=== PATIENT | female | born 1975 | race Caucasian/White ===

== ENCOUNTER 2017-07-24 08:03 | Inpatient (IN) | payer OTHER ==
[2017-07-24] MEDS ORDERED: DILTIAZEM HCL 125 MG in DEXTROSE 5 % IN WATER 100 ML IV PRN ×2 (08:14)
[2017-07-24] MEDS ORDERED: DILTIAZEM HCL 5 MG/ML VIAL IV ONE ×3 (08:14→12:52)
[2017-07-24] MEDS ORDERED: ASPIRIN 81 MG TAB.CHEW PO ONE (08:29)
[2017-07-24] MEDS ORDERED: ASPIRIN 81 MG TAB.CHEW ONE (08:30)
--- NOTE | 2017-07-24 08:32 | ERNOTE ---
Chest Pain/Cardiac HPI Chief Complaint: Palpitations Time Seen by Provider: 07/24/17 08:05 Source: patient, family Exam Limitations: no limitations Immunizations: IMMUNIZATION HX Immunizations Up to Date Yes History of Influenza Vaccine Yes Hx Pneumococcal Vaccination No Allergies/Adverse Reactions: Allergies clarithromycin [From Biaxin] Allergy (Verified 07/24/17 08:15) Hives Penicillins Allergy (Verified 07/24/17 08:15) Hives Home Medications: HOME MEDICATIONS Atomoxetine HCl [Strattera] 30 mg PO DAILY 07/24/17 [Last Taken Unknown] Levocetirizine Dihydrochloride [Xyzal] 5 mg PO DAILY 07/24/17 [Last Taken Unknown] Levothyroxine Sodium [Synthroid] 25 mcg PO DAILY 07/24/17 [Last Taken Unknown] Sertraline HCl [Zoloft] 200 mg PO DAILY 07/24/17 [Last Taken Unknown] clonazePAM [Klonopin] 0.25 mg PO TID PRN 07/24/17 [Last Taken Unknown] lamoTRIgine [Lamictal] 400 mg PO BID 07/24/17 [Last Taken Unknown] metFORMIN HCL [Metformin HCl ER] 1,500 mg PO HS 07/24/17 [Last Taken Unknown] Narrative: Patient will morning at approximately 6 AM and it feels sore heart was racing. She has noticed this one other time in the past of vertigo lasted for less than an hour before it stopped. This time as been ongoing for over 2 hours and she feels short of breath and was feeling little diaphoretic. He rates it as mild to moderate in severity. Timing: constant Severity/Quality: mild, moderate Location: central Chest Pain Radiation: no radiation Activities at Onset: none Modifying Factors - Improves: Present: nothing Modifying Factors - Worsens: Present: nothing Nitro Today/Relief: no nitro taken today Aspirin Treatment Today: 81 mg x 4, provided by ED Associated Symptoms: Present: shortness of breath, diaphoresis Prior Chest Pain/Cardiac Workup: Reports: other - similar symptoms a couple years ago Prior Treatment: Reports: recently seen Review of Systems - Review of Systems Constitutional: Present: See HPI EYE: Present: no symptoms reported ENT: Present: no symptoms reported Respiratory: Present: no symptoms reported Cardiology: Present: palpitations Gastrointestinal/Abdominal: Present: no symptoms reported Genitourinary: Present: no symptoms reported Musculoskeletal: Present: no symptoms reported Skin: Present: no symptoms reported Neurological: Present: no symptoms reported Endocrine: Present: no symptoms reported Hematologic/Lymphatic: Present: no symptoms reported Psych: Present: no symptoms reported - Patient's Past Medical History Patient History - Medical: Depression, Other Patient History - Cardiac/Respiratory: Atrial Fibrillation Patient History - Cancer: No Hx of Cancer Patient History - Surgical Procedures: Hysterectomy Patient History - Other: None - Social History Living Situations: home Abuse History: No History of abuse Psych History: Hx of Depression, Current tx/ever been on anti-depressants or anti-anxiety meds Smoking Status: Former smoker Have you smoked in the past 12 months: No Alcohol Use: none Drug Use: none - Immunizations Immunizations Up to Date: Yes Hx Pneumococcal Vaccination: No History of Influenza Vaccine: Yes Physical Exam - Physical Exam General Appearance: Present: wd/wn, alert, moderate distress Head Exam: Present: normal inspection Eye Exam: Normal inspection: bilateral, PERRL: bilateral Ears, Nose, Throat: Present: normal ENT inspection, H, normal pharynx Neck: Present: normal inspection, nontender Respiratory: Present: normal breath sounds, no accessory muscle use, chest nontender, lungs clear, respiratory distress - mild Cardiovascular/Chest: Present: no murmur, normal peripheral pulses, tachycardia , irregularly irregular Gastrointestinal/Abdominal: Present: normal bowel sounds, nontender, nondistended, soft, no organomegaly Rectal Exam: Present: deferred Back Exam: Present: normal inspection, normal range of motion Extremity Exam: Present: normal inspection, non-tender, no edema, normal range of motion Neurological Exam: Present: alert, oriented, normal mood/affect Skin Exam: Present: normal color, diaphoresis Lymphatic Exam: Present: no adenopathy ED Progress - Results and Orders Patient's Lab Results:: I have reviewed the patient's lab results. - Vital Signs Patient's Vital Signs:: I have reviewed the patient's vital signs. Vital Signs: Vital Signs 07/24/17 08:03 Temperature 35.1 C L Pulse Rate 143 H Respiratory 16 Rate Blood Pressure 114/81 O2 Sat by Pulse 97 Oximetry - EKG EKG: atrial fibrillation EKG read: Reviewed by me - X-Ray X-Ray #1 X-Ray: chest Interpretation: Reviewed by me - Progress/Reassessment Chief Complaint: Palpitations - Transfer of Care Expected Disposition: Admit Plan - Plan Plan: Patient will need to be admitted to the S2 for the day and an echocardiogram will need to be done. We initially attempted to control the rate with Cardizem and we were ineffective and a blood pressures falling so we changed her to amiodarone with 150 mg bolus and drip of 1 mg/m of the amiodarone. Patient admitted to the ICU and guarded/critical condition Departure Clinical Impression: Atrial fibrillation with RVR - Departure Disposition: [facility] Condition: Fair Critical Care Note - Critical Care Note Total Time (mins): 45 Comments: Patient arrived needing both IV Cardizem which failed to get adequate response and we had to switch her over to amiodarone drip with a bolus and drip of Cardizem and amiodarone both being given in the ED. Emergent cardioversion was not necessary as the blood pressure remained reasonable. Patient did receive 1 mg/kg of Lovenox subcutaneous in the ED as well. Critical Care Time - Critical Care Critical Time Spent:: Yes Total time (mins) Spent:: 45
[2017-07-24 08:35] LABS: Hematocrit 45.6 % (37.0-47.0); Hemoglobin 15.6 gm/dL (12.5-16.0); Mean Cell Volume 87.4 fl (78-100); Mean Corpuscular Hemoglobin 29.9 pg (27-31); Mean Corpuscular Hgb Conc 34.2 g/dl (32-36); Mean Platelet Volume 8.9 fl (6.0-9.5); Neutrophil # 3.8 K/mm3 (1.3-6.0); Neutrophil % 58.9 % (42-75.0); Platelet Count 342 K/mm3 (150-450); Red Blood Count 5.22 M/mm3 (4.2-5.4); Red Cell Distribution Width 12.4 % (11.5-14.0); White Blood Count 6.4 K/mm3 (4.0-10.5)
[2017-07-24 08:46] LABS: Prothrombin Time (Patient) 9.6 Seconds (9.0-11.0)
[2017-07-24 08:48] LABS: INR 0.96 INR (0.90-1.10); Partial Thrombolplastin Time 25.7 Seconds (24-32)
[2017-07-24 08:56] LABS: ALT 29 U/L (19-67); AST 23 U/L (0-48); Albumin * 3.7 gm/dl (3.4-5.0); Alkaline Phosphatase * 63 U/L (50-170); Anion Gap 17.8 mmol/L (6.8-13.8); BUN/Creatinine Ratio 10.3 (9.0-21.6); Bilirubin, Total 0.3 mg/dL (0.0-1.1); Blood Urea Nitrogen 10 mg/dL (3-23); Ca. Corrected For Albumin 8.9 mg/dL (8.4-10.2); Carbon Dioxide 23.8 mmol/L (24-32.6); Chloride 107 mmol/L (97-106); Glucose * 88 mg/dL (70-110); Magnesium 1.7 mg/dL (1.2-2.8); Potassium 3.6 mmol/L (3.4-4.6); Sodium 145 mmol/L (132-142); Total Protein 7.5 gm/dL (6.2-8.2); Troponin I Less than 0.017 ng/ml (0.00-0.10)
[2017-07-24] MEDS ORDERED: ENOXAPARIN SODIUM 100 MG/ML SYRG SC ONE ×2 (09:13→09:17)
[2017-07-24] MEDS ORDERED: ENOXAPARIN SODIUM 30 MG/0.3 ML SYRG SC ONE (09:17)
[2017-07-24] MEDS ORDERED: AMIODARONE HCL 50 MG/ML AMPUL IV STA (09:28)
[2017-07-24] MEDS ORDERED: AMIODARONE HCL 150 MG/100 ML PIGGYBACK IV ONE (09:28)
[2017-07-24] MEDS ORDERED: clonazePAM 0.5 MG TABLET ONE (09:43)
[2017-07-24] MEDS ORDERED: AMIODARONE HCL 900 MG in DEXTROSE 5 % IN WATER 500 ML IV SCH ×2 (10:00)
[2017-07-24] MEDS ORDERED: clonazePAM 0.5 MG TABLET PO ONE (10:45)
[2017-07-24] MEDS ORDERED: NORMAL SALINE 1,000 ML IV ONE ×3 (10:45→14:20)
[2017-07-24] MEDS: NORMAL SALINE 1,000 ML IV PRN ×2 (15:27→23:24)
[2017-07-24] MEDS: LEVOTHYROXINE SODIUM 25 MCG TABLET PO SCH (15:42)
[2017-07-24] MEDS: SERTRALINE HCL 100 MG TABLET PO SCH (15:43)
[2017-07-24] MEDS: DILTIAZEM HCL 125 MG in DEXTROSE 5 % IN WATER 100 ML IV PRN ×4 (16:01→23:23)
[2017-07-24] MEDS: lamoTRIgine 100 MG TABLET PO SCH (20:52)
[2017-07-24] MEDS: clonazePAM 0.5 MG TABLET PO PRN (20:53)
--- NOTE | 2017-07-24 23:38 | HP ---
Chief Complaint - Chief Complaint Date of Service: 07/24/17 Time of Service: 12:45 Chief Complaint: Palpitations, Shortness of breath History of Present Illness: Clifton is a 42 yo female with history of hypothyroidism that awoke at 6am with sudden onset of fast heart rate and shortness of breath. She reports no change in her usual health. She had just flown from [place] to [place] two days prior. She reports one prior episode of atrial fibrillation that took one dose of medication to fix previously. She was given diltiazem in the ER but blood pressures dropped. She was started on amiodarone drip which helped heart rate improve from 150 to 120. At the time of my evaluation she reports feeling her heart race still, but denies chest pain or shortness of breath. She denies recent changes to medication, activity, or diet. - Patient's Past Medical History Patient History - Medical: Depression Patient History - Cardiac/Respiratory: Atrial Fibrillation - Single brief episode Patient History - Cancer: No Hx of Cancer Patient History - Surgical Procedures: Hysterectomy Patient History - Other: None - Family History Mother Family History - Medical: Diabetes Type 2 Family History - Cancer: Colon - Social History Living Situations: home Abuse History: No History of abuse Psych History: Hx of Depression, Current tx/ever been on anti-depressants or anti-anxiety meds Smoking Status: Former smoker Have you smoked in the past 12 months: No Do you dip or chew tobacco: No Patient requests Smoking Cessation Consult: No Initiate information on Smoking Cessation: No Alcohol Use: none Drug Use: none - Immunizations Immunizations Up to Date: Yes Hx Pneumococcal Vaccination: No History of Influenza Vaccine: Yes Review Of Systems (GEN) - Review of Systems Generalized/Overall Review: Present: Weakness. Absent: Chills, Fever EENTM: Present: No Symptoms Reported Respiratory: Present: Shortness of Breath. Absent: Cough, Orthopnea Cardiac: Present: Palpitations. Absent: Chest Pain, Edema Abdominal: Present: No Symptoms Reported Genitourinary: Present: No Symptoms Reported Musculoskeletal: Present: No Symptoms Reported Neurological: Present: No Symptoms Reported Skin: Present: No Symptoms Reported Immunizations: IMMUNIZATION HX Immunizations Up to Date Yes History of Influenza Vaccine Yes Hx Pneumococcal Vaccination No Allergies/Adverse Reactions: Allergies Allergy/AdvReac Type Severity Reaction Status Date / Time clarithromycin [From Biaxin] Allergy Hives Verified 07/24/17 08:15 Penicillins Allergy Hives Verified 07/24/17 08:15 Home Medications: HOME MEDICATIONS Atomoxetine HCl [Strattera] 30 mg PO DAILY 07/24/17 [Last Taken Unknown] Levocetirizine Dihydrochloride [Xyzal] 5 mg PO DAILY 07/24/17 [Last Taken Unknown] Levothyroxine Sodium [Synthroid] 25 mcg PO DAILY 07/24/17 [Last Taken Unknown] Sertraline HCl [Zoloft] 200 mg PO DAILY 07/24/17 [Last Taken Unknown] clonazePAM [Klonopin] 0.25 mg PO TID PRN 07/24/17 [Last Taken Unknown] lamoTRIgine [Lamictal] 300 mg PO BID 07/24/17 [Last Taken Unknown] metFORMIN HCL [Metformin HCl ER] 1,500 mg PO HS 07/24/17 [Last Taken Unknown] Exam - Exam Vital Signs: Vital Signs - Last Taken Temp 36.6 C 07/24/17 21:00 Pulse 110 H 07/24/17 23:23 Resp 19 07/24/17 23:00 BP 120/64 07/24/17 23:23 Pulse Ox 93 07/24/17 23:00 Constitutional: Present: Alert, Cooperative ENT Exam: Present: hearing grossly normal Eye Exam: bilateral eye: normal inspection Respiratory: Present: lungs clear, normal breath sounds Cardiovascular/Chest: Present: irregularly irregular Abdomen: Present: Normal bowel sounds, soft, nontender, nondistended Skin Exam: Present: normal color, warm/dry, no cyanosis Appearance: Present: appropriate appearance, appropriate insight Diagnostic Studies: Laboratory Results WBC 6.4 K/mm3 (4.0-10.5) 07/24/17 08:33 RBC 5.22 M/mm3 (4.2-5.4) 07/24/17 08:33 Hgb 15.6 gm/dL (12.5-16.0) 07/24/17 08:33 Hct 45.6 % (37.0-47.0) 07/24/17 08:33 MCV 87.4 fl (78-100) 07/24/17 08:33 MCH 29.9 pg (27-31) 07/24/17 08:33 MCHC 34.2 g/dl (32-36) 07/24/17 08:33 RDW 12.4 % (11.5-14.0) 07/24/17 08:33 Plt Count 342 K/mm3 (150-450) 07/24/17 08:33 MPV 8.9 fl (6.0-9.5) 07/24/17 08:33 Immature Gran % (Auto) 0.20 % (0.001-0.429) 07/24/17 08:33 Immature Gran # (Auto) 0.01 K/mm3 (0.000-0.0310) 07/24/17 08:33 Neutrophils % 58.9 % (42-75.0) 07/24/17 08:33 Lymphocytes % 28.1 % (20-51) 07/24/17 08:33 Monocytes % 9.2 % (0.0-9) H 07/24/17 08:33 Eosinophils % 2.8 % (0.0-3.0) 07/24/17 08:33 Basophils % 0.8 % (0.0-1.0) 07/24/17 08:33 Nucleated RBC % 0.0 k/mm3 (0-1) 07/24/17 08:33 Neutrophils # 3.8 K/mm3 (1.3-6.0) 07/24/17 08:33 Lymphocytes # 1.8 k/mm3 (1.5-3.5) 07/24/17 08:33 Monocytes # 0.6 k/mm3 (0.0-1.0) 07/24/17 08:33 Eosinophils # 0.2 k/mm3 (0.0-0.7) 07/24/17 08:33 Absolute Basophils 0.1 k/mm3 (0.0-0.1) 07/24/17 08:33 PT 9.6 Seconds (9.0-11.0) 07/24/17 08:33 INR (Anticoag Therapy) 0.96 INR (0.90-1.10) 07/24/17 08:33 PTT (Subhash) 25.7 Seconds (24-32) 07/24/17 08:33 Sodium 145 mmol/L (132-142) H 07/24/17 08:33 Plasma Sodium 145 mmol/L (130-142) H 07/24/17 08:33 Potassium 3.6 mmol/L (3.4-4.6) 07/24/17 08:33 Chloride 107 mmol/L (97-106) H 07/24/17 08:33 Carbon Dioxide 23.8 mmol/L (24-32.6) L 07/24/17 08:33 Anion Gap 17.8 mmol/L (6.8-13.8) H 07/24/17 08:33 BUN 10 mg/dL (3-23) 07/24/17 08:33 Creatinine 0.97 mg/dL (0.4-1.4) 07/24/17 08:33 Est GFR (Non-Af Amer) 67 mL/min (60-130) 07/24/17 08:33 BUN/Creatinine Ratio 10.3 (9.0-21.6) 07/24/17 08:33 Random Glucose 88 mg/dL (70-110) 07/24/17 08:33 Calcium 9.0 mg/dL (7.9-10.9) 07/24/17 08:33 Calcium Adj for Albumin 8.9 mg/dL (8.4-10.2) 07/24/17 08:33 Magnesium 1.7 mg/dL (1.2-2.8) 07/24/17 08:33 Total Bilirubin 0.3 mg/dL (0.0-1.1) 07/24/17 08:33 AST 23 U/L (0-48) 07/24/17 08:33 ALT 29 U/L (19-67) 07/24/17 08:33 Alkaline Phosphatase 63 U/L (50-170) 07/24/17 08:33 Troponin I Less than 0.017 ng/ml (0.00-0.10) 07/24/17 08:33 Total Protein 7.5 gm/dL (6.2-8.2) 07/24/17 08:33 Albumin 3.7 gm/dl (3.4-5.0) 07/24/17 08:33 TSH 2.283 uIU/mL (0.358-3.74) 07/24/17 08:33 Assessment/Plan - Assessment/Plan (1) Atrial fibrillation with RVR Assessment: Clifton is a 42 yo female with atrial fibrillation with RVR. Currently on Amiodarone drip, will continue. Will give additional IVF. Check TSH. Known onset of atrial fibrillation with RVR as 0600 on 07/24/17. Patient with one prior episode, potential for paroxysmal atrial fibrillation. Will admit to ICU on amiodarone drip and monitor telemetry. Considering diltiazem ( if blood pressure improves) vs electrical cardioversion. Problem: Acute
[2017-07-25] MEDS: ACETAMINOPHEN 500 MG TABLET PO PRN ×2 (04:40→13:39)
[2017-07-25] MEDS: clonazePAM 0.5 MG TABLET PO PRN (06:07)
[2017-07-25] MEDS ORDERED: DILTIAZEM HCL 120 MG CAP.SR.24H PO SCH (08:00)
[2017-07-25] MEDS: LEVOTHYROXINE SODIUM 25 MCG TABLET PO SCH (08:08)
[2017-07-25] MEDS: NORMAL SALINE 1,000 ML IV PRN (08:16)
[2017-07-25] MEDS: lamoTRIgine 100 MG TABLET PO SCH (08:56)
[2017-07-25] MEDS: SERTRALINE HCL 100 MG TABLET PO SCH (08:57)
[2017-07-25] MEDS ORDERED: ASPIRIN 325 MG TABLET.DR PO SCH (09:00)
--- NOTE | 2017-07-25 16:14 | DS ---
(1) Atrial fibrillation with RVR Problem: Resolved Procedures Performed: none Discharge Disposition: Home self care Disposition: Home self-care Condition: Fair Discharge Activity: Activity as tolerated Discharge Diet: General/regular food Referrals: [facility] [Non Staff Physicians] - Problem Oriented Discharge Instructions to Patient/Family: Atrial Fibrillation , [id number] Additional Patient Instructions (free text): Consider follow up at home with Cardiology for echocardiogram. Prescriptions (Any new or edited meds): Aspirin [Aspirin Enteric Coated] 325 mg PO DAILY #30 tablet. Diltiazem HCl [Cardizem Cd] 120 mg PO Q24H #30 cap.sr.24h Complete Home Medications List: Complete Home Medication List: Atomoxetine HCl [Strattera] 30 mg PO DAILY 07/24/17 Levocetirizine Dihydrochloride [Xyzal] 5 mg PO DAILY 07/24/17 Levothyroxine Sodium [Synthroid] 25 mcg PO DAILY 07/24/17 Sertraline HCl [Zoloft] 200 mg PO DAILY 07/24/17 clonazePAM [Klonopin] 0.25 mg PO TID PRN 07/24/17 lamoTRIgine [Lamictal] 300 mg PO BID 07/24/17 metFORMIN HCL [Metformin HCl ER] 1,500 mg PO HS 07/24/17 Aspirin [Aspirin Enteric Coated] 325 mg PO DAILY #30 tablet. 07/25/17 Diltiazem HCl [Cardizem Cd] 120 mg PO Q24H #30 cap.sr.24h 07/25/17
[2017-07-25 16:58] VITALS: BP 122/66
== END 2017-07-25 17:15 | disposition home or self-care (01) | DRG 310 ==
LOC: ER 08:03 → SCU 10:43
PROVIDERS: ADMIT Family Medicine; ATTEND Family Medicine
DX: I48.91 Unspecified atrial fibrillation (principal); F32.9 Major depressive disorder, single episode, unspecified; Z88.0 Allergy status to penicillin; Z87.891 Personal history of nicotine dependence